=== PATIENT | male | born 1965 | race African-American/Black ===

== ENCOUNTER → 2016-07-07 | Day surgery (SDC) | payer BC ==
[~2016-07-07] MED LIST: CARAFATE PO; MULTI VITAMIN1 EACH PO; PLAQUENIL200 MG PO; PRAVASTATIN SOD40 MG PO; PRILOSEC PO; TESTOSTERONE TOP
--- NOTE | ~2016-07-07 | OR ---
Unit #: [id number] #: [id number] Patient: ASH GORDON SR [id number] [address] [place], [place] [address] [id number] MR#: [id number] NAME: ASH GORDON SR ROOM: Date of Procedure: 07/07/2016 Admission Date: 07/07/2016 Surgeon: Faheem Mccormick M.D. : 1965 Attending Physician: Faheem Mccormick M.D. Primary Care Physician: Dorian Holloway II, M.D. OPERATIVE REPORT PREOPERATIVE DIAGNOSIS Screening colonoscopy. POSTOPERATIVE DIAGNOSIS Screening colonoscopy. PROCEDURE PERFORMED Colonoscopy to cecum. ANESTHESIA Monitored anesthesia care. FINDINGS The patient had normal colon to the cecum. SPECIMENS None. COMPLICATIONS None apparent. CONDITION The patient tolerated the procedure well. INDICATIONS FOR PROCEDURE The patient is a 51-year-old black male, who presents at this time for screening colonoscopy. DESCRIPTION OF PROCEDURE After obtaining informed consent, the patient was brought to the endoscopy suite and after adequate monitored anesthesia care, had the colonoscope placed through the anus and advanced to the level of the cecum without difficulty with the lumen always in view. The cecum was normal as was the ileocecal valve. The ascending colon was normal as was the hepatic flexure, transverse colon, splenic flexure, descending colon, sigmoid colon, and rectum. No diverticula were seen. On retroflexing in the rectum to the anorectal junction, no abnormalities were seen. The scope was removed without difficulty. On digital examination, there were no palpable masses. Good sphincter tone. The patient went from the endoscopy suite to the recovery area in stable condition. Unit #: [id number] #: [id number] Patient: ASH GORDON SR RECOMMENDATIONS High-fiber diet, lots of liquids, tucks or wipes p.r.n. Follow up as needed. Dictated by... Marion Clark/afshan TD: 07/07/2016 08:23 JOB #: [id number] CC: [facility] OPERATIVE REPORT Page 1 of 1 X Faheem Mccormick MD PROCEDURE OPERATIVE NOTE
== END | disposition home or self-care (01) ==
LOC: COPS 05:47
PROVIDERS: Surgery
PROC: 0DJD8ZZ Inspection of Lower Intestinal Tract, Via Natural or Artificial Opening Endoscopic (ICD-10-PCS; principal; 2016-07-07 07:00)
DX: Z12.11 Encounter for screening for malignant neoplasm of colon (principal); E78.5 Hyperlipidemia, unspecified; K21.9 Gastro-esophageal reflux disease without esophagitis; M19.90 Unspecified osteoarthritis, unspecified site; M54.9 Dorsalgia, unspecified; M25.50 Pain in unspecified joint; Z79.899 Other long term (current) drug therapy; Z83.3 Family history of diabetes mellitus; Z80.9 Family history of malignant neoplasm, unspecified; Z98.890 Other specified postprocedural states
CPT/HCPCS: J2250